=== PATIENT | female | born 1990 | race Hispanic/Latino ===

== ENCOUNTER 2017-09-22 07:51 | Outpatient (CLI) | payer MEDICAID | END 2017-09-22 07:52 | disposition home or self-care (01) | LOC: BICULT 07:51 | PROVIDERS: ATTEND Family Medicine | DX: O09.892 Supervision of other high risk pregnancies, second trimester (principal); Z3A.27 27 weeks gestation of pregnancy | CPT/HCPCS: 76805 ==

== ENCOUNTER 2017-10-14 08:38 | Outpatient (CLI) | payer OTHER | END 2017-10-14 08:39 | disposition home or self-care (01) | LOC: BICULT 08:38 | PROVIDERS: ATTEND Nurse Practitioner | DX: O09.893 Supervision of other high risk pregnancies, third trimester (principal) | CPT/HCPCS: 76815 ==

== ENCOUNTER 2017-12-02 08:21 | Inpatient (IN) | payer MEDICAID, OTHER, SELFPAY ==
[2017-12-02] MEDS ORDERED: Penicillin G Potassium 5 MILL.UNITS VIAL ONE (12:58)
[2017-12-02] MEDS: Lactated Ringer's 1,000 ML IV SCH ×2 (13:13→16:07)
[2017-12-02] MEDS ORDERED: Carboprost 250 MCG/ML AMP IM SCH (13:51)
[2017-12-02] MEDS ORDERED: HYDROcodone/Acetaminophen 5/325 mg Tablet PO PRN ×2 (13:51→19:05)
[2017-12-02] MEDS ORDERED: NS / Oxytocin 40 units/1000ml 1,000 ML IV PRN (13:51)
[2017-12-02] MEDS ORDERED: Methylergonovine 0.2 MG/ML VIAL IM PRN (13:51)
[2017-12-02] MEDS ORDERED: Ondansetron HCl/PF 4 MG/2 ML Vial IVP PRN ×3 (13:51→19:05)
[2017-12-02] MEDS ORDERED: Butorphanol Tartrate 1 MG/ML VIAL SLOW IVP PRN (13:51)
[2017-12-02] MEDS ORDERED: Diphenoxylate HCl/Atropine Tablet PO PRN (13:51)
[2017-12-02] MEDS ORDERED: Penicillin G Potassium 5 MILL.UNITS in Sodium Chloride 0.9% 100 ML IVPB SCH (13:51)
[2017-12-02] MEDS ORDERED: NS w/ Oxytocin 10 units 500 ML IV SCH ×2 (13:51)
[2017-12-02] MEDS ORDERED: Misoprostol 200 MCG TAB PR PRN (13:51)
[2017-12-02] MEDS ORDERED: Lidocaine 1% (PF) 30 ML VIAL SC PRN (13:51)
[2017-12-02] MEDS ORDERED: Ibuprofen 800 MG TAB PO PRN (13:51)
[2017-12-02 14:06] LABS: Hemoglobin 12.8 g/dL (12.0-16.0); Mean Corpuscular HGB CONC 32.7 g/dL (32.0-36.0); Mean Corpuscular Hemoglobin 28.2 pg (27.0-31.0); Mean Corpuscular Volume 86.2 fL (78.0-98.0); Mean Platelet Volume 9.3 fL (7.4-10.4); Platelet Count 194 thou/uL (130-400); RBC Distribution Width 11.9 % (11.5-14.5); Red Blood Cell (RBC) Count 4.52 mill/uL (4.20-5.40); White Blood Cell (WBC) Count 8.9 thou/uL (4.8-10.8)
[2017-12-02 14:07] VITALS: BMI 38.0
[2017-12-02] MEDS ORDERED: Fentanyl 4 mcg/Bup 0.1% Cadd 100 ML ONE (14:37)
[2017-12-02 14:38] LABS: Syphilis Antibody Nonreactive (Nonreactive); Syphilis Antibody Index 0.04 S/CO (<1.00 Non-Reactive)
[2017-12-02 14:39] LABS: HBSAg Index 0.22 S/CO (0-0.99); Hep B Surf Ag Non-Reactive S/CO (NonReactive)
[2017-12-02] MEDS ORDERED: Promethazine HCl 25 MG/ML VIAL IM PRN (15:05)
[2017-12-02] MEDS ORDERED: Acetaminophen 325 MG TAB PO PRN (15:05)
[2017-12-02] MEDS ORDERED: ePHEDrine/0.9% NaCl/PF SYRINGE 50 mg/10 ml SLOW IVP PRN (15:05)
[2017-12-02] MEDS ORDERED: diphenhydrAMINE 50 MG/ML VIAL IVP PRN (15:05)
[2017-12-02] MEDS ORDERED: Naloxone HCl 0.4 mg/ml Vial IVP PRN ×2 (15:05)
[2017-12-02] MEDS ORDERED: Lactated Ringer's 500 ML IV PRN (15:05)
[2017-12-02] MEDS ORDERED: Eucerin (Mineral Oil/Petrolatum,White) 30 gm Jar TOP PRN (15:05)
[2017-12-02] MEDS ORDERED: Communication Order-Pharmacy FS SCH (15:15)
[2017-12-02] MEDS ORDERED: Fentanyl 4 mcg/Bupivacaine 0.1% Cassette 100 ML EPIDURAL SCH (15:15)
[2017-12-02] MEDS ORDERED: Penicillin G 2.5 MILL.units 2.5 MILL.UNITS in Premix Bag 1 BAG IVPB SCH (17:00)
[2017-12-02] MEDS ORDERED: Lanolin Ointment 7 GM TUBE TOP PRN (19:05)
[2017-12-02] MEDS ORDERED: diphenhydrAMINE 25 MG CAP PO PRN (19:05)
[2017-12-02] MEDS ORDERED: Bisacodyl 10 MG SUPP PR PRN (19:05)
[2017-12-02] MEDS ORDERED: Benzocaine/Menthol 20-0.5% 60 ML CAN TOP PRN (19:05)
[2017-12-02] MEDS ORDERED: Milk Of Magnesia 30 ML UDCUP PO PRN (19:05)
[2017-12-02] MEDS ORDERED: NS / Oxytocin 40 units/1000ml 1,000 ML IV SCH (19:15)
[2017-12-02] MEDS: Ibuprofen 800 MG TAB PO SCH (19:58)
[2017-12-02] MEDS ORDERED: Adacel (T-DAP) 0.5 ML VIAL IM ONE (20:00)
[2017-12-02] MEDS: Docusate Calcium (SURFAK) 240 MG CAP PO SCH (20:55)
[2017-12-03 05:01] LABS: Hemoglobin 12.6 g/dL (12.0-16.0); Mean Corpuscular HGB CONC 33.5 g/dL (32.0-36.0); Mean Corpuscular Hemoglobin 28.7 pg (27.0-31.0); Mean Corpuscular Volume 85.9 fL (78.0-98.0); Mean Platelet Volume 8.4 fL (7.4-10.4); Platelet Count 209 thou/uL (130-400); RBC Distribution Width 11.8 % (11.5-14.5); Red Blood Cell (RBC) Count 4.37 mill/uL (4.20-5.40); White Blood Cell (WBC) Count 10.4 thou/uL (4.8-10.8)
[2017-12-03] MEDS: Ibuprofen 800 MG TAB PO SCH ×3 (06:23→21:35)
[2017-12-03] MEDS: HYDROcodone/Acetaminophen 5/325 mg Tablet PO PRN ×2 (10:06→17:37)
[2017-12-03] MEDS: Prenatal Vitamin 1 TAB PO SCH (10:06)
[2017-12-03] MEDS: Docusate Calcium (SURFAK) 240 MG CAP PO SCH ×2 (10:06→21:00)
[2017-12-03] MEDS: Ferrous Sulfate 325 MG TAB PO SCH ×2 (10:08→17:39)
[2017-12-03 20:50] VITALS: TEMP 98.2
[2017-12-04] MEDS: Ibuprofen 800 MG TAB PO SCH (05:59)
[2017-12-04 07:48] VITALS: BP 116/57
[2017-12-04] MEDS: Ferrous Sulfate 325 MG TAB PO SCH (07:50)
[2017-12-04] MEDS: Docusate Calcium (SURFAK) 240 MG CAP PO SCH (09:30)
[2017-12-04] MEDS: Prenatal Vitamin 1 TAB PO SCH (09:30)
== END 2017-12-04 14:20 | disposition home or self-care (01) | DRG 807 ==
LOC: L&D/OP 08:21 → L&D 13:41 → 3SW 19:06
PROVIDERS: ADMIT Family Medicine; ATTEND Family Medicine
PROC: 10E0XZZ Delivery of Products of Conception, External Approach (ICD-10-PCS; principal; 2017-12-02)
PROC: 10907ZC Drainage of Amniotic Fluid, Therapeutic from Products of Conception, Via Natural or Artificial Opening (ICD-10-PCS; 2017-12-02)
PROC: 0HQ9XZZ Repair Perineum Skin, External Approach (ICD-10-PCS; 2017-12-02)
DX: O69.81X0 Labor and delivery complicated by cord around neck, without compression, not applicable or unspecified (principal); Z37.0 Single live birth; O70.0 First degree perineal laceration during delivery; Z3A.38 38 weeks gestation of pregnancy
CPT/HCPCS: 36415; 51702; 85027; 86780; 86850; 86900; 86901; 87340; 99285; J2001; J2540

== ENCOUNTER 2018-10-07 13:42 | Emergency (ER) | payer MEDICAID, SELFPAY ==
[2018-10-07 16:00] LABS: #Lymphocytes 1.6 thou/uL (1.20-3.40); #Neutrophils 6.9 thou/uL (1.40-6.50); %Basophils 0.3 % (0.0-1.0); %Eosinophils 0.2 % (0.0-10.0); %Lymphocytes 16.5 % (21.0-51.0); %Monocytes 10.7 % (0.0-10.0); %Neutrophils 72.4 % (42.0-75.0); Hemoglobin 14.1 g/dL (12.0-16.0); Mean Corpuscular HGB CONC 34.6 g/dL (32.0-36.0); Mean Corpuscular Hemoglobin 30.3 pg (27.0-31.0); Mean Corpuscular Volume 87.6 fL (78.0-98.0); Platelet Count 216 thou/uL (130-400); RBC Distribution Width 10.9 % (11.5-14.5); Red Blood Cell (RBC) Count 4.64 mill/uL (4.20-5.40); White Blood Cell (WBC) Count 9.5 thou/uL (4.8-10.8)
[2018-10-07 16:22] LABS: ALT (SGPT) 83 U/L (8-55); AST (SGOT) 49 U/L (5-34); Albumin 4.6 g/dL (3.5-5.0); Alkaline Phosphatase 79 U/L (40-150); Anion Gap 16 mmol/L (10-20); BUN (Urea Nitrogen) 8 mg/dL (7.0-18.7); Bilirubin, Total 0.5 mg/dL (0.2-1.2); Calc. Creatinine Clearance 0 mL/min (70-130); Calcium 9.8 mg/dL (7.8-10.44); Carbon Dioxide 21 mmol/L (22-29); Chloride 102 mmol/L (98-107); Estimated GFR-MDRD Greater than 90; Globulin 3.7 g/dL (2.4-3.5); Glucose 107 mg/dL (70-105); Potassium 3.8 mmol/L (3.5-5.1); Protein, Total 8.3 g/dL (6.0-8.3); Sodium 135 mmol/L (136-145)
[2018-10-07 19:10] LABS: Bacteria/HPF 4+ HPF (None Seen); Bilirubin Negative (Negative); Blood, Urine Trace (Negative); Clarity Clear (Clear); Glucose, Urine (Dipstick) Normal (Negative); Leukocyte 500 Leu/uL (Negative); Nitrite Negative (Negative); Pregnancy Test - Urine (BHCG) Negative (Negative); Pregu Control Background? CLEAR/WHITE (CLR/WHITE); Pregu Control Bar Appear? YES (CONTROL BAR); Protein, Urine (Dipstick) Negative (Neg-Trace); RBC/HPF 0-3 HPF (0-3); Specific Gravity 1.004 (1.002-1.036); Squamous Epithelial 0-3 HPF (0-3); Urobilinogen Normal mg/dL (Less than 2); WBC/HPF Greater than 50 HPF (0-3)
[2018-10-07] MEDS ORDERED: Ketorolac Tromethamine 30 MG/ML VIAL ONE (19:54)
[2018-10-07] MEDS ORDERED: cefTRIAXone\\ROCEPHIN 2 GM VIAL ONE (19:54)
[2018-10-07] MEDS ORDERED: Acetaminophen 500 MG TAB ONE (19:54)
--- NOTE | 2018-10-07 21:02 | CT ---
CT OF THE ABDOMEN AND PELVIS WITH IV CONTRAST INDICATION: Right lower quadrant abdominal pain COMPARISON: None FINDINGS: ABDOMEN: Lung bases: Clear Liver: Severe fatty infiltration with hepatomegaly Gallbladder: Normal appearing. Pancreas: Normal. Adrenal glands: Normal. Spleen: Mild splenomegaly measuring 14.6 cm Kidneys: Normal. Retroperitoneum of the upper abdomen: No lymphadenopathy or free fluid is identified. Pelvis: Small and large bowel: Small and large bowel are of normal caliber. There is normal appendix in the r ight or quadrant. Bladder: Normal. Rectal and perirectal soft tissues:Normal. Reproductive structures: Normal. Free fluid in pelvis: No free fluid is evident. Lymphadenopathy pelvis: No lymphadenopathy is evident. Osseous structures: No acute osseous abnormality. No destructive osteolytic or osteoblastic lesion i s identified. IMPRESSION: 1. Severe fatty infiltration of the liver. 2. Hepatosplenomegaly. 3. Normal appendix
== END 2018-10-07 21:50 | disposition home or self-care (01) ==
LOC: ERS 13:42
DX: N12 Tubulo-interstitial nephritis, not specified as acute or chronic (principal)
CPT/HCPCS: 36415; 74177; 80053; 81003; 81015; 81025; 83605; 83690; 85025; 87040; 87077; 87086; 87186; 94760; 96361; 96374; 96375; J0696; J1885

== ENCOUNTER 2020-07-28 09:56 | Outpatient (CLI) | payer BC, OTHER | END 2020-07-28 09:57 | disposition home or self-care (01) | LOC: DTY/OP 09:56 | PROVIDERS: ATTEND Surgery | DX: R73.9 Hyperglycemia, unspecified (principal) | CPT/HCPCS: 97802 ==

== ENCOUNTER 2020-12-27 12:30 | Inpatient (IN) | payer BC ==
[2020-12-28 14:01] VITALS: BMI 39.9
[2021-01-01] MEDS ORDERED: cefOXitin Sodium/Dextrose 2 GM/50 ML BAG ONE (09:21)
[2021-01-01] MEDS ORDERED: Scopolamine 1.5 mg/72 hour Patch ONE (09:21)
[2021-01-01] MEDS ORDERED: Enoxaparin Sodium 30 MG/0.3 ML SYRINGE ONE (09:43)
[2021-01-01] MEDS ORDERED: Enoxaparin Sodium 40 MG/0.4 ML SYRINGE ONE (09:46)
[2021-01-01] MEDS ORDERED: PHENYLEPHRINE-NS 100 MCG/ML 10 ML SYRINGE ONE (10:54)
[2021-01-01] MEDS ORDERED: PROPOFOL 200 MG/20 ML VIAL ONE (10:54)
[2021-01-01] MEDS ORDERED: Ketorolac Tromethamine 30 MG/ML VIAL ONE (10:54)
[2021-01-01] MEDS ORDERED: Lidocaine 1% PF 5 ML VIAL ONE (10:54)
[2021-01-01] MEDS ORDERED: Rocuronium Bromide 10 MG/ML (10ML VIAL) ONE (10:54)
[2021-01-01] MEDS ORDERED: Metoclopramide HCl 10 MG/2 ML VIAL ONE (10:54)
[2021-01-01] MEDS ORDERED: Ondansetron PF 4 MG/2 ML Vial ONE ×2 (10:54→13:47)
[2021-01-01] MEDS ORDERED: Dexamethasone 20 MG/5 ML VIAL ONE (10:54)
[2021-01-01] MEDS ORDERED: Bupivacaine 0.25% HCL 30 ML VIAL ONE (10:57)
[2021-01-01] MEDS ORDERED: Lidocaine 1% w/Epinephrine 1:100K 20 ML VIAL ONE (10:57)
[2021-01-01] MEDS ORDERED: Promethazine HCl 25 MG/ML VIAL IM PRN ×2 (11:08→12:39)
[2021-01-01] MEDS ORDERED: Ondansetron PF 4 MG/2 ML Vial IVP PRN (11:08)
[2021-01-01] MEDS ORDERED: Dextrose 5% in Water 1,000 ML IV PRN (11:08)
[2021-01-01] MEDS ORDERED: Hydrocodone-Acetamin 15 ML UDCUP PO PRN (11:08)
[2021-01-01] MEDS ORDERED: Dextrose 50% Abboject 50 ML SYRINGE SLOW IVP PRN (11:08)
[2021-01-01] MEDS ORDERED: diphenhydrAMINE 50 MG/ML VIAL IVP PRN (11:08)
[2021-01-01] MEDS ORDERED: Morphine 4 MG/ML VIAL SLOW IVP PRN (11:56)
[2021-01-01] MEDS ORDERED: Fentanyl 100 MCG/2 ML VIAL ONE (12:26)
[2021-01-01] MEDS ORDERED: Meperidine HCl/PF 25 MG/ML VIAL ONE (12:26)
[2021-01-01] MEDS ORDERED: SUGAMMADEX SODIUM 200 MG/2 ML VIAL ONE (12:27)
[2021-01-01] MEDS ORDERED: Albuterol Sulfate HFA (OR ONLY) ONE (12:27)
[2021-01-01] MEDS ORDERED: Famotidine/PF 20 mg/2ml Vial ONE (12:27)
[2021-01-01] MEDS ORDERED: Ondansetron HCl/PF 4 MG/2 ML Vial IVP PRN (12:39)
[2021-01-01] MEDS ORDERED: Promethazine HCl 25 MG/ML VIAL IVPB PRN (12:39)
[2021-01-01] MEDS ORDERED: Meperidine HCl/PF 25 MG/ML VIAL SLOW IVP PRN (12:39)
[2021-01-01] MEDS: Ketorolac Tromethamine 30 MG/ML VIAL IVP SCH ×3 (15:52→23:49)
[2021-01-01] MEDS: D5 1/2 NS w/20 mEq KCL 1,000 ML IV SCH ×2 (15:58→18:46)
[2021-01-02] MEDS: D5 1/2 NS w/20 mEq KCL 1,000 ML IV SCH (00:22)
[2021-01-02] MEDS: Ketorolac Tromethamine 30 MG/ML VIAL IVP SCH (05:48)
[2021-01-02 06:45] LABS: #Lymphocytes 1.6 thou/uL (1.20-3.40); #Monocytes 0.9 thou/uL (0.11-0.59); #Neutrophils 9.3 thou/uL (1.40-6.50); %Basophils 0.2 % (0.0-1.0); %Eosinophils 0.1 % (0.0-10.0); %Lymphocytes 13.7 % (21.0-51.0); %Monocytes 7.4 % (0.0-10.0); %Neutrophils 78.7 % (42.0-75.0); Hemoglobin 12.1 g/dL (12.0-16.0); Mean Corpuscular HGB CONC 34.5 g/dL (32.0-36.0); Mean Corpuscular Hemoglobin 30.9 pg (27.0-31.0); Mean Corpuscular Volume 89.6 fL (78.0-98.0); Mean Platelet Volume 8.1 fL (7.4-10.4); Platelet Count 219 thou/uL (130-400); RBC Distribution Width 10.8 % (11.5-14.5); Red Blood Cell (RBC) Count 3.92 mill/uL (4.20-5.40); White Blood Cell (WBC) Count 11.8 thou/uL (4.8-10.8)
[2021-01-02 07:04] LABS: Anion Gap 10 mmol/L (10-20); BUN (Urea Nitrogen) 5 mg/dL (7.0-18.7); Calc. Creatinine Clearance 252 mL/min (70-130); Calcium 8.9 mg/dL (7.8-10.44); Carbon Dioxide 24 mmol/L (22-29); Chloride 108 mmol/L (98-107); Glucose 137 mg/dL (70-105); Potassium 4.1 mmol/L (3.5-5.1); Sodium 138 mmol/L (136-145)
[2021-01-02 08:22] VITALS: BP 113/73; TEMP 98.2
[2021-01-02] MEDS ORDERED: FLU VACC QS2021-22(6MOS UP)/PF 60 MCG/0.5 ML SYRINGE IM ONE (09:00)
[2021-01-02] MEDS ORDERED: Enoxaparin Sodium 40 MG/0.4 ML SYRINGE SC SCH (09:00)
[2021-01-02] MEDS ORDERED: Pantoprazole 40 MG VIAL IVP SCH (09:00)
== END 2021-01-02 10:55 | disposition home or self-care (01) | DRG 621 ==
LOC: SURG A 01-01 08:25
PROVIDERS: ADMIT Surgery; ATTEND Surgery
PROC: 0DB64Z3 Excision of Stomach, Percutaneous Endoscopic Approach, Vertical (ICD-10-PCS; principal; 2021-01-01)
PROC: 8E0W4CZ Robotic Assisted Procedure of Trunk Region, Percutaneous Endoscopic Approach (ICD-10-PCS; 2021-01-01)
DX: E66.01 Morbid (severe) obesity due to excess calories (principal); Z68.41 Body mass index [BMI] 40.0-44.9, adult; Z88.8 Allergy status to other drugs, medicaments and biological substances; Z87.440 Personal history of urinary (tract) infections
CPT/HCPCS: 36415; 80048; 85025; 88307; 90471; 90686; 94760; C9113; G0008; J0694; J1100; J1650; J1885; J2175; J2405; J2704; J2765; J3010; J3480; S0020; S0028

== ENCOUNTER 2020-12-28 07:27 | Outpatient (CLI) | payer BC ==
[2020-12-28 09:38] LABS: Calc. Creatinine Clearance 0 mL/min (70-130)
[2020-12-28 17:24] LABS: SARS-CoV-2 PCR by NAA Not Detected (NotDetected)
== END 2020-12-28 07:28 | disposition home or self-care (01) ==
LOC: LABBT 07:27
PROVIDERS: ATTEND Surgery
DX: Z01.812 Encounter for preprocedural laboratory examination (principal); R73.9 Hyperglycemia, unspecified; E66.01 Morbid (severe) obesity due to excess calories; Z20.822 Contact with and (suspected) exposure to COVID-19
CPT/HCPCS: 82565; U0003; U0005